=== PATIENT | male | born 1945 | race Caucasian/White ===

== ENCOUNTER 2022-07-21 16:45 | Observation (INO) | payer MEDICARE, SELFPAY ==
[~2022-07-21] VITALS: Ht 172.7 cm; Wt 77.9 kg
[2022-07-21 19:40] VITALS: BP 151/71
[2022-07-21] MEDS ORDERED: HYDROMORPHONE HCL 0.5 MG/ 0.5 ML SYRINGE (J1170 PER 1) IV PRN (21:00)
[2022-07-21] MEDS ORDERED: ACETAMINOPHEN TAB 650MG DOSE (2X325MG) PO PRN (21:00)
[2022-07-21] MEDS: NYSTATIN 500,000 U/5 ML SUSP UDC PO SCH (22:14)
[2022-07-21] MEDS: AMPICILLIN SOD/SULBACTAM SOD 3 GM in D5W MINI-BAG PLUS 100 ML IV SCH (22:14)
[2022-07-21] MEDS ORDERED: PANTOPRAZOLE 40MG VIAL IV SCH (23:00)
[2022-07-22] MEDS ORDERED: UNRESOLVED CLARIFICATION ENTRY XX SCH (00:01)
[2022-07-22 00:35] VITALS: BP 137/67
[2022-07-22 03:29] VITALS: BP 122/61
[2022-07-22] MEDS: AMPICILLIN SOD/SULBACTAM SOD 3 GM in D5W MINI-BAG PLUS 100 ML IV SCH ×2 (04:00→10:05)
[2022-07-22 04:34] LABS: HEMATOCRIT 43.5 % (42.0-52.0); HEMOGLOBIN 14.6 g/dl (13.5-17.5); MEAN CORPUSCULAR HEMOGLOBIN 29.5 pg (27.0-33.0); MEAN CORPUSCULAR HGB CONC 33.6 g/dl (32.0-36.5); MEAN CORPUSCULAR VOLUME 87.9 fl (80.0-96.0); PLATELET COUNT, AUTOMATED 231 10^3/uL (150-450); RED BLOOD COUNT 4.95 10^6/uL (4.30-6.10); WHITE BLOOD COUNT 5.7 10^3/uL (4.0-10.0)
[2022-07-22 05:06] LABS: BLOOD UREA NITROGEN 14 MG/DL (7-18); CALCIUM LEVEL 8.6 MG/DL (8.8-10.2); CARBON DIOXIDE LEVEL 25 MEQ/L (21-32); CHLORIDE LEVEL 107 MEQ/L (98-107); CREATININE FOR GFR 1.11 MG/DL (0.70-1.30); GLOMERULAR FILTRATION RATE > 60.0 (>42); GLUCOSE, FASTING 87 MG/DL (70-100); POTASSIUM SERUM 4.2 MEQ/L (3.5-5.1); SODIUM LEVEL 138 MEQ/L (136-145)
[2022-07-22 08:10] VITALS: BP 150/72
[2022-07-22] MEDS ORDERED: AUGM500T34 PO (08:17)
[2022-07-22] MEDS ORDERED: OMEP40CA5 PO (08:20)
[2022-07-22] MEDS ORDERED: SUCR1ORA PO (08:20)
[2022-07-22] MEDS ORDERED: PANTOPRAZOLE 40MG VIAL IV SCH (09:00)
[2022-07-22] MEDS: NYSTATIN 500,000 U/5 ML SUSP UDC PO SCH (09:00)
== END 2022-07-22 11:25 | disposition home or self-care (01) ==
LOC: INTOOBSV 20:08 → M PCU 20:08
PROVIDERS: ADMIT Internal Medicine; ATTEND Internal Medicine
DX: J34.1 Cyst and mucocele of nose and nasal sinus (principal); K27.9 Peptic ulcer, site unspecified, unspecified as acute or chronic, without hemorrhage or perforation; E78.00 Pure hypercholesterolemia, unspecified; Z79.899 Other long term (current) drug therapy; Z87.891 Personal history of nicotine dependence
CPT/HCPCS: 31575; 36415; 80048; 85027; 96365; 96366; 96375; 96376; C9113; J0295